=== PATIENT | female | born 2000 | race Hispanic/Latino ===

== ENCOUNTER 2023-07-21 11:43 | Emergency (ER) | payer BC ==
[~2023-07-21] VITALS: Ht 167.6 cm; Wt 127.0 kg
[2023-07-21 12:18] VITALS: BP 144/68; PULSE 94; RESP 18
[2023-07-21] MEDS: KETOROLAC 30MG VIAL (30MG/ML) IM ONE (14:06)
[2023-07-21] MEDS ORDERED: IBUP-2070 PO (14:45)
== END 2023-07-21 15:02 | disposition home or self-care (01) ==
LOC: EDH 11:43
DX: M79.671 Pain in right foot (principal); M25.571 Pain in right ankle and joints of right foot
CPT/HCPCS: 99284; 73610; 73630; 96372; J1885